=== PATIENT | male | born 1935 | race Caucasian/White ===

== ENCOUNTER → 2016-10-18 | Outpatient (CLI) | payer MEDICARE, BC ==
[2016-10-18 09:03] LABS: Appearance,Urine Clear (Clear); Bilirubin,Urine Negative (Negative); Glucose,Urine (UA) Negative (Negative); Ketones,Urine Negative (Negative); Leukocyte Esterase,Urine Negative (Negative); Nitrite,Urine Negative (Negative); PH, Urine 5.5 (5.0-8.0); Protein,Urine Trace (Negative); Specific Gravity,Urine 1.017 (1.001-1.035); UA Billing (MACRO vs. MICRO) CHEM; Urobilinogen,Urine <2.0 mg/dL (<2.0)
[2016-10-18 10:37] LABS: Basophils % (A) 0 %; CH 32.1; CHCM 32.9; Eosinophils # (A) 0.2 k/uL (0-0.7); Eosinophils % (A) 3 %; HCT 48.7 % (39.0-53.0); HDW 2.38; HGB 15.9 gm/dL (13.0-17.5); Luc # (Auto) 0.11; Luc % (Auto) 2; Lymphocytes # (A) 0.9 k/uL (1.0-4.8); Lymphocytes % (A) 14 %; MCH 32.1 pg (25.0-35.0); MCHC 32.8 g/dL (31.0-37.0); MCV 98.1 fL (80.0-100.0); Mean Platelet Volume 8.5; Monocytes # (A) 0.3 k/uL (0-1.0); Monocytes % (A) 5 %; Neutrophils # (A) 4.8 k/uL (1.3-7.7); Neutrophils % (A) 76 %; RBC 4.96 m/uL (4.30-5.90); RDW 13.3 % (11.5-15.5); WBC 6.3 k/uL (3.8-10.6); WBC (Perox) 6.41
[2016-10-18 11:10] LABS: ALT 39 U/L (21-72); AST 40 U/L (17-59); Alkaline Phosphatase 84 U/L (38-126); Anion Gap 9 mmol/L; Blood Urea Nitrogen 17 mg/dL (9-20); Calcium 9.3 mg/dL (8.4-10.2); Carbon Dioxide 28 mmol/L (22-30); Chloride 102 mmol/L (98-107); Cholesterol 129 mg/dL (<200); Glucose 127 mg/dL (74-99); HDL Cholesterol 48 mg/dL (40-60); Non-African American GFR(MDRD) >60 (>60 ml/min/1.73 sqM); Potassium 3.9 mmol/L (3.5-5.1); Sodium 139 mmol/L (137-145); Total Bilirubin 1.1 mg/dL (0.2-1.3); Total Protein 6.7 g/dL (6.3-8.2); Triglycerides 62 mg/dL (<150)
[2016-10-18 11:11] LABS: Hemoglobin A1C 5.8 % (4.2-6.1)
[2016-10-18 11:34] LABS: Prostate Specific Antigen 0.52 ng/mL (0.00-4.00)
== END | disposition home or self-care (01) ==
LOC: LABWHC1 08:01
PROVIDERS: ATTEND Family Medicine
DX: I48.2 Chronic atrial fibrillation (principal); I10 Essential (primary) hypertension; E78.2 Mixed hyperlipidemia; N40.0 Benign prostatic hyperplasia without lower urinary tract symptoms; Z79.01 Long term (current) use of anticoagulants
CPT/HCPCS: 36415; 80053; 80061; 81003; 83036; 84153; 84443; 85025; 85610

== ENCOUNTER → 2017-02-01 | Outpatient (CLI) | payer MEDICARE, BC ==
[2017-02-01 08:41] LABS: Basophils % (A) 1 %; CH 32.5; CHCM 34.6; Eosinophils # (A) 0.2 k/uL (0-0.7); Eosinophils % (A) 3 %; HCT 45.3 % (39.0-53.0); HDW 2.43; HGB 15.8 gm/dL (13.0-17.5); Luc # (Auto) 0.12; Luc % (Auto) 2; Lymphocytes # (A) 1.1 k/uL (1.0-4.8); Lymphocytes % (A) 16 %; MCH 33.1 pg (25.0-35.0); MCV 94.6 fL (80.0-100.0); Mean Platelet Volume 8.1; Monocytes # (A) 0.4 k/uL (0-1.0); Monocytes % (A) 5 %; Neutrophils # (A) 5.2 k/uL (1.3-7.7); Neutrophils % (A) 74 %; RBC 4.79 m/uL (4.30-5.90); RDW 13.5 % (11.5-15.5); WBC (Perox) 6.89
[2017-02-01 08:44] LABS: INR 1.5 (<1.1); Prothrombin Time 14.7 sec (9.0-12.0)
[2017-02-01 09:13] LABS: Hemoglobin A1C 5.8 % (4.2-6.1)
[2017-02-01 12:52] LABS: ALT 30 U/L (21-72); AST 29 U/L (17-59); Alkaline Phosphatase 83 U/L (38-126); Anion Gap 9 mmol/L; Blood Urea Nitrogen 17 mg/dL (9-20); Calcium 9.4 mg/dL (8.4-10.2); Carbon Dioxide 27 mmol/L (22-30); Chloride 104 mmol/L (98-107); Cholesterol 133 mg/dL (<200); Creatine Kinase 135 U/L (55-170); Glucose 107 mg/dL (74-99); HDL Cholesterol 45 mg/dL (40-60); Magnesium 1.9 mg/dL (1.6-2.3); Non-African American GFR(MDRD) >60 (>60 ml/min/1.73 sqM); Potassium 4.4 mmol/L (3.5-5.1); Sodium 140 mmol/L (137-145); Total Bilirubin 0.9 mg/dL (0.2-1.3); Total Protein 6.7 g/dL (6.3-8.2); Triglycerides 53 mg/dL (<150)
[2017-02-01 15:22] LABS: Vitamin B12 643 pg/mL
[2017-02-01 16:27] LABS: Urine Creatinine 212.1 mg/dL
== END | disposition home or self-care (01) ==
LOC: LABWHC1 08:15
PROVIDERS: ATTEND Family Medicine
DX: E78.2 Mixed hyperlipidemia (principal); E11.9 Type 2 diabetes mellitus without complications; I48.2 Chronic atrial fibrillation; J44.9 Chronic obstructive pulmonary disease, unspecified
CPT/HCPCS: 36415; 80053; 80061; 82043; 82550; 82570; 82607; 83036; 83735; 84439; 84443; 85025; 85610

== ENCOUNTER → 2017-04-10 | Outpatient (CLI) | payer MEDICARE, BC ==
--- NOTE | 2017-04-10 08:34 | FL ---
EXAMINATION TYPE: FL barium swallow DATE OF EXAM: 04/10/2017 CLINICAL HISTORY: Dysphagia TECHNIQUE: A double contrast esophagram is performed utilizing air and barium. A total of 2 minutes and 6 seconds of fluoroscopic time was utilized during procedure. COMPARISON: None FINDINGS: The esophagus shows normal motility and emptying into the stomach. Small hiatal hernia is n oted. Mild significant gastroesophageal reflux was seen during real time performance of this study to the level of the distal thoracic esophagus utilizing the Valsalva maneuver in the gravity independen t position. Impression upon the esophagus is seen posteriorly by anterior cervical and thoracic osteo phytes with no evidence of stricture. IMPRESSION: 1. No evidence of stricture or obstruction. 2. Small hiatal hernia and mild gastroesophageal reflux. 3. Mild posterior impression upon the esophagus by anterior cervical and thoracic osteophytes.
== END | disposition home or self-care (01) ==
LOC: RADFLMAIN 07:42
PROVIDERS: ATTEND Otolaryngology
DX: K44.9 Diaphragmatic hernia without obstruction or gangrene (principal); K21.9 Gastro-esophageal reflux disease without esophagitis; R13.10 Dysphagia, unspecified
CPT/HCPCS: 74220

== ENCOUNTER → 2017-04-19 | Outpatient (CLI) | payer MEDICARE, BC | END | disposition home or self-care (01) | LOC: PTMAIN 07:36 | PROVIDERS: ATTEND Otolaryngology | DX: R13.10 Dysphagia, unspecified (principal) | CPT/HCPCS: 31579 ==

== ENCOUNTER → 2017-06-06 | Outpatient (CLI) | payer MEDICARE, BC ==
[2017-06-06 08:28] LABS: Basophils % (A) 1 %; CH 32.1; CHCM 32.6; Eosinophils # (A) 0.3 k/uL (0-0.7); Eosinophils % (A) 4 %; HCT 49.4 % (39.0-53.0); HDW 2.47; HGB 15.8 gm/dL (13.0-17.5); Luc # (Auto) 0.15; Luc % (Auto) 2; Lymphocytes # (A) 1.2 k/uL (1.0-4.8); Lymphocytes % (A) 16 %; MCH 31.6 pg (25.0-35.0); MCHC 31.9 g/dL (31.0-37.0); Mean Platelet Volume 7.4; Monocytes # (A) 0.4 k/uL (0-1.0); Monocytes % (A) 6 %; Neutrophils # (A) 5.3 k/uL (1.3-7.7); Neutrophils % (A) 72 %; RBC 4.99 m/uL (4.30-5.90); RDW 12.9 % (11.5-15.5); WBC 7.4 k/uL (3.8-10.6); WBC (Perox) 7.55
[2017-06-06 08:46] LABS: ALT 34 U/L (21-72); AST 29 U/L (17-59); Alkaline Phosphatase 76 U/L (38-126); Anion Gap 9 mmol/L; Blood Urea Nitrogen 21 mg/dL (9-20); Calcium 9.1 mg/dL (8.4-10.2); Carbon Dioxide 28 mmol/L (22-30); Chloride 103 mmol/L (98-107); Cholesterol 134 mg/dL (<200); Creatine Kinase 137 U/L (55-170); Glucose 118 mg/dL (74-99); HDL Cholesterol 44 mg/dL (40-60); Magnesium 1.8 mg/dL (1.6-2.3); Non-African American GFR(MDRD) >60 (>60 ml/min/1.73 sqM); Potassium 4.6 mmol/L (3.5-5.1); Sodium 140 mmol/L (137-145); Total Bilirubin 0.6 mg/dL (0.2-1.3); Total Protein 6.8 g/dL (6.3-8.2)
== END | disposition home or self-care (01) ==
LOC: LABWHC1 08:00
PROVIDERS: ATTEND Family Medicine
DX: E03.9 Hypothyroidism, unspecified (principal); E11.9 Type 2 diabetes mellitus without complications; E78.2 Mixed hyperlipidemia
CPT/HCPCS: 36415; 80053; 80061; 82550; 82607; 83036; 83735; 84439; 84443; 85025

== ENCOUNTER → 2017-10-11 | Outpatient (CLI) | payer MEDICARE, BC ==
[2017-10-11 08:43] LABS: Basophils % (A) 1 %; Eosinophils # (A) 0.2 k/uL (0-0.7); Eosinophils % (A) 3 %; HCT 45.6 % (39.0-53.0); HGB 14.8 gm/dL (13.0-17.5); Lymphocytes # (A) 0.8 k/uL (1.0-4.8); Lymphocytes % (A) 12 %; MCH 30.5 pg (25.0-35.0); MCHC 32.4 g/dL (31.0-37.0); MCV 94.2 fL (80.0-100.0); Monocytes # (A) 0.4 k/uL (0-1.0); Monocytes % (A) 6 %; Neutrophils # (A) 4.9 k/uL (1.3-7.7); Neutrophils % (A) 77 %; Platelet Count 195 k/uL (150-450); RBC 4.84 m/uL (4.30-5.90); RDW 13.2 % (11.5-15.5); WBC 6.3 k/uL (3.8-10.6)
[2017-10-11 09:10] LABS: Appearance,Urine Clear (Clear); Bilirubin,Urine Negative (Negative); Blood,Urine Negative (Negative); Color,Urine Yellow; Glucose,Urine (UA) Negative (Negative); Ketones,Urine Negative (Negative); Leukocyte Esterase,Urine Negative (Negative); Nitrite,Urine Negative (Negative); Protein,Urine Negative (Negative); Specific Gravity,Urine 1.014 (1.001-1.035); Urobilinogen,Urine <2.0 mg/dL (<2.0)
[2017-10-11 09:46] LABS: ALT 28 U/L (21-72); AST 31 U/L (17-59); Albumin 3.9 g/dL (3.5-5.0); Alkaline Phosphatase 98 U/L (38-126); Anion Gap 7 mmol/L; Blood Urea Nitrogen 20 mg/dL (9-20); Calcium 9.7 mg/dL (8.4-10.2); Carbon Dioxide 32 mmol/L (22-30); Chloride 101 mmol/L (98-107); Cholesterol 119 mg/dL (<200); Glucose 114 mg/dL (74-99); HDL Cholesterol 42 mg/dL (40-60); LDL Cholesterol,Calculated 68 mg/dL (0-99); Potassium 4.9 mmol/L (3.5-5.1); Sodium 140 mmol/L (137-145); Total Bilirubin 0.7 mg/dL (0.2-1.3); Total Protein 6.5 g/dL (6.3-8.2); Triglycerides 46 mg/dL (<150)
[2017-10-11 09:59] LABS: T4, Free (Free Thyroxine) 1.25 ng/dL (0.78-2.19)
[2017-10-11 10:13] LABS: Prostate Specific Antigen 0.64 ng/mL (0.00-4.00)
[2017-10-11 18:15] LABS: Hemoglobin A1C 5.7 % (4.0-6.0)
== END | disposition home or self-care (01) ==
LOC: LABWHC1 07:50
PROVIDERS: ATTEND Family Medicine
DX: E78.2 Mixed hyperlipidemia (principal); N40.0 Benign prostatic hyperplasia without lower urinary tract symptoms; E11.9 Type 2 diabetes mellitus without complications; I10 Essential (primary) hypertension; E03.9 Hypothyroidism, unspecified
CPT/HCPCS: 36415; 80053; 80061; 81003; 82043; 82306; 82570; 82607; 83036; 84153; 84439; 84443; 85025

== ENCOUNTER 2018-01-19 09:20 | Inpatient (IN) | payer MEDICARE, BC ==
[2018-01-19] MEDS ORDERED: IOPAMIDOL-300 CONTRAST 30 ML VIAL (ORAL USE) PO PRN (12:49)
[2018-01-19] MEDS ORDERED: IPRATROPIUM-ALBUTEROL 3 ML NEB INHALATION PRN (12:52)
[2018-01-19] MEDS ORDERED: FLUTICASONE 50MCG/SPRAY NASAL 16GM EA NOSTRIL PRN (12:52)
[2018-01-19] MEDS ORDERED: HEPARIN SODIUM,PORCINE 10,000 UNIT/ML 1 ML VIAL IV ONE (12:57)
[2018-01-19] MEDS ORDERED: HEPARIN SODIUM,PORCINE 5,000 UNIT/ML 1 ML VIAL IV PRN (12:57)
[2018-01-19] MEDS ORDERED: WARFARIN SODIUM 3 MG PO SCH (13:00)
[2018-01-19] MEDS ORDERED: HEPARIN SOD,PORK IN 0.45% NACL 25,000 UNIT in 0.45% NACL 1 500ML.BAG IV SCH (13:00)
[2018-01-19 13:38] LABS: Basophils % (A) 0 %; Eosinophils # (A) 0.2 k/uL (0-0.7); Eosinophils % (A) 3 %; HCT 41.9 % (39.0-53.0); HGB 13.7 gm/dL (13.0-17.5); Lymphocytes # (A) 0.5 k/uL (1.0-4.8); Lymphocytes % (A) 7 %; MCH 30.6 pg (25.0-35.0); MCHC 32.7 g/dL (31.0-37.0); MCV 93.6 fL (80.0-100.0); Mean Platelet Volume 7.1; Monocytes # (A) 0.4 k/uL (0-1.0); Monocytes % (A) 6 %; Neutrophils # (A) 5.8 k/uL (1.3-7.7); Neutrophils % (A) 83 %; Platelet Count 237 k/uL (150-450); RBC 4.47 m/uL (4.30-5.90); WBC 6.9 k/uL (3.8-10.6)
[2018-01-19 13:47] LABS: INR 2.1 (<1.2); Partial Thromboplastin Time 30.1 sec (22.0-30.0); Prothrombin Time 19.4 sec (9.0-12.0)
[2018-01-19 13:57] LABS: ALT 39 U/L (21-72); AST 29 U/L (17-59); Albumin 3.3 g/dL (3.5-5.0); Alkaline Phosphatase 73 U/L (38-126); Anion Gap 8 mmol/L; Blood Urea Nitrogen 21 mg/dL (9-20); Calcium 8.7 mg/dL (8.4-10.2); Carbon Dioxide 29 mmol/L (22-30); Chloride 97 mmol/L (98-107); Glucose 98 mg/dL (74-99); Potassium 4.5 mmol/L (3.5-5.1); Sodium 134 mmol/L (137-145); Total Bilirubin 0.7 mg/dL (0.2-1.3); Total Protein 5.7 g/dL (6.3-8.2)
[2018-01-19 14:11] LABS: Creatine Kinase MB 1.4 ng/mL (0.0-2.4); Troponin I <0.012 ng/mL (0.000-0.034)
[2018-01-19] MEDS: SODIUM CHLORIDE 0.9% 1,000 ML IV SCH (14:30)
[2018-01-19 14:45] VITALS: BMI 23.3
[2018-01-19] MEDS: LEVOFLOXACIN 500MG-D5W PMX 500 MG in DEXTROSE/WATER 1 100ML.BAG IVPB SCH (14:45)
[2018-01-19] MEDS: IPRATROPIUM-ALBUTEROL 3 ML NEB INHALATION PRN (15:42)
--- NOTE | 2018-01-19 15:59 | P.HPIM ---
History of Present Illness H&P Date: 01/19/18 Chief Complaint: Lashonda lazcano with RVR, hypoxia, hypertension, hyperlipidemia, diabetes and hypoth 82-year-old occasion male one of Dr. 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 Patient has been complaining of increased dyspnea and worsening shortness of breath in the last week become much worse with feeling of palpitation on and off had affected his mobility and activity significantly. Patient was in to see Dr. Massey today with pulse rate running very fast over 100-160 beats per minute patient was sent to the hospital supposed to go to the emergency department but show up on the floor as a direct admit was placed on heart monitor was supposed to be started on Cardizem drip and heparin drip but his INR is therapeutic no need for anticoagulation through the IV if patient pulse rate remain fast and rapid patient will be started and continue on Cardizem drip any other antiarrhythmic medication. Also patient has been having worsening fluid retention and shortness of breath with the possibility of mild systolic congestive heart failure was started on Lasix 20 mg IV twice a day. Review of Systems CONSTITUTIONAL: Well-developed no acute respiratory distress. EYES: No icterus sclerae, no conjunctivitis. EARS, NOSE, MOUTH, THROAT, and FACE: No sore throat, lymphadenopathy, carotid bruits or deformity. RESPIRATORY: Positive shortness of breath cough with fluid retention. CARDIOVASCULAR: No CP, positive palpitation, PND and orthopnea. GASTROINTESTINAL: No Abd pain, Nausea or vomiting, no Diarrhea or constipation, No GI Bleed, no distention or masses. GENITOURINARY: Negative for Hematuria or UTI, no kidney stones. INTEGUMENT/BREAST: Negative for any muscular injury with mild osteoarthritis.. HEMATOLOGIC/LYMPHATIC: Negative for bleed or purpura. MUSCULOSKELTAL: Negative for Myalgia or arthralgia. NEURLOGICAL: No LOC, Sz or syncope, blurred vision dizziness or abnormality.. BEHAVIORAL/PSYCH: Negative. ENDOCRINE: Negative. Past Medical History Past Medical History: Atrial Fibrillation, Hyperlipidemia, Hypertension, Osteoarthritis (OA), Prostate Disorder Additional Past Medical History / Comment(s): Recent pneumonia, SVT, arthritis multiple joints, hypothyroid, BPH, hemorrhoids. History of Any Multi-Drug Resistant Organisms: None Reported Past Surgical History: Cholecystectomy, Tonsillectomy Additional Past Surgical History / Comment(s): Colonoscopies, bilateral cataracts removed twice with lens implants, R leg varicose vein stripping. Past Anesthesia/Blood Transfusion Reactions: No Reported Reaction Smoking Status: Former smoker - Past Family History Mother Family Medical History: Dementia Additional Family Medical History / Comment(s): Mother had a pacemaker. She lived to be 93 yrs old. Father Additional Family Medical History / Comment(s): Father had a "bad heart" and a aortic anuerysm. Medications and Allergies Home Medications Medication Instructions Recorded Confirmed Type Aspirin [Adult Low Dose Aspirin EC] 81 mg PO DAILY 12/30/15 01/19/18 History Levothyroxine Sodium [Synthroid] 75 mcg PO DAILY 12/30/15 01/19/18 History Tamsulosin [Flomax] 0.4 mg PO DAILY 12/30/15 01/19/18 History Fluticasone Nasal Burden [Flonase 1 - 2 spr EA NOSTRIL BID PRN 01/19/18 01/19/18 History Nasal Burden] Furosemide [Lasix] 20 mg PO BID 01/19/18 01/19/18 History Ipratropium [place] 0.06%Nasal 2 spray EA NOSTRIL TID 01/19/18 01/19/18 History [Atrovent Nasal 0.06%] Ipratropium/Albuterol Sulfate 1 - 2 puff INHALATION RT-QID PRN 01/19/18 History [Combivent Respimat Inhaler] MDD 6 PUFFS Metoprolol Succinate [Toprol XL] 50 mg PO DAILY 01/19/18 01/19/18 History Pantoprazole [Protonix] 40 mg PO DAILY 01/19/18 01/19/18 History Simvastatin [Zocor] 40 mg PO HS 01/19/18 01/19/18 History Warfarin Sodium [Coumadin] 3 mg PO DIRECTED 01/19/18 01/19/18 History metFORMIN HCL [metFORMIN HCL ER] 750 mg PO DAILY 01/19/18 01/19/18 History metroNIDAZOLE [Flagyl] 500 mg PO TID 01/19/18 01/19/18 History Allergies Allergy/AdvReac Type Severity Reaction Status Date / Time No Known Allergies Allergy Verified 01/19/18 11:41 Physical Exam Vitals: Vital Signs Pulse 01/19/18 15:43 92 Intake and Output 01/19/18 01/19/18 01/19/18 06:59 14:59 22:59 Other: # Voids 1 Weight 78.1 kg General Appearance: Alert, cooperative, no distress, appears stated age. Neck HEENT: Supple, no lymphadenopathy, no thyroid enlargement, no carotid bruits. Lungs: Clear to auscultation with decreased breaths in the bases positive fine rhonchi with no wheezes. Chest Wall: Decreased breath sound bilaterally specially in the left side with no deformity no tenderness in the costochondral area.. Heart: Irregular rate and rhythm, S1, S2 positive history positive irregularity normal, positive murmur, no rub or gallop. Back: Symmetric, no curvature, ROM normal, no CVA tenderness. Abdomen: Soft, non-tender, bowel sounds active all four quadrants, no masses, no organomegaly. Extremities: normal, atraumatic, no cyanosis, trace edema. Pulses: 2+ and symmetric. Skin: Skin color, texture, tugor normal, no rashes or lesions. Neurologic: Alert oriented x3 cranial nerves II through XII intact, no motor deficit, no abnormal balance or gait. Results CBC & Chem 7: 01/19/18 13:19 01/19/18 13:19 Labs: Abnormal Lab Results - Last 24 Hours (Table) 01/19/18 01/19/18 01/19/18 Range/Units 13:19 13:19 13:19 Lymphocytes # 0.5 L (1.0-4.8) k/uL PT 19.4 H (9.0-12.0) sec INR 2.1 H (<1.2) APTT 30.1 H (22.0-30.0) sec Sodium 134 L (137-145) mmol/L Chloride 97 L (98-107) mmol/L BUN 21 H (9-20) mg/dL Total Protein 5.7 L (6.3-8.2) g/dL Albumin 3.3 L (3.5-5.0) g/dL Thrombosis Risk Factor Assmnt - Choose All That Apply Any of the Below Risk Factors Present?: Yes Other Risk Factors: Yes Each Risk Factor Represents 3 Points: Age 75 years or older Other congenital or acquired thrombophilia - If yes, enter type in comment: No Thrombosis Risk Factor Assessment Total Risk Factor Score: 3 Thrombosis Risk Factor Assessment Level: Moderate Risk Assessment and Plan Plan: 1 A. fib with RVR: Patient was admitted to the hospital, will check anticoagulation start heparin if INR is below therapeutic, if pulse rate remain fast patient be started on Cardizem drip ~pulse rate to drop below 90 bpm then we will titrate metoprolol and possibly start patient on oral verapamil or Cardizem. Consult cardiology keep watching patient on monitor also might run an echocardiogram for better view and function of the left ventricle. 2 severe dyspnea and shortness of breath with basilar pneumonia been symptomatic , continue patient on DuoNeb also start on now antibiotics patient was started on Levaquin at this point and he was previously on Flagyl which will be continue. 3 CHF: Patient is on furosemide will switch to IV 20 mg twice a day continue metoprolol not clear why patient is not on our before diya. 4 diabetes: Patient will be continue on diet control. 5 hypothyroidism: Continue patient on levothyroxine 75 g daily. 6 hyperlipidemia: Remain on atorvastatin 20 mg a day. 7 BPH: Remain on Flomax 0.4 mg daily. 8 DVT prophylaxis: Anticoagulation has been therapeutic at this point resume medication. 9 GI prophylaxis: Remain on pantoprazole 40 mg daily. CODE STATUS: Full code. Admit patient to inpatient status for more than 2 nights.
--- NOTE | 2018-01-19 16:39 | CT ---
EXAMINATION TYPE: CT abdomen pelvis wo con DATE OF EXAM: 01/19/2018 HISTORY: HYPOXEMIA, A-FIB WITH RVR. Pain. CT DLP: 414.5 mGycm. Automated Exposure Control for Dose Reduction was Utilized. TECHNIQUE: CT scan of the abdomen and pelvis is performed with oral but without IV contrast. COMPARISON: NONE FINDINGS: Within the limitations of a non-contrast study, the following observations are made. LUNG BASES: Please refer to same day CTA chest report complete details on lung bases. LIVER/GB: Gallbladder is not visualized and presumed surgically absent. PANCREAS: No significant abnormality is seen. SPLEEN: Occasional calcifications throughout the spleen are present. ADRENALS: No significant abnormality is seen. KIDNEYS: No renal calculi or hydronephrosis is evident bilaterally. Scattered pelvic phleboliths are seen. BOWEL: Oral contrast does not reach colonic level making evaluation suboptimal. There is no suspiciou s small or large bowel dilatation. A few diverticula are seen in slightly redundant sigmoid colon. Th ere is no CT evidence for acute diverticulitis. GENITAL ORGANS: No gross abnormality seen. LYMPH NODES: No greater than 1cm abdominal or pelvic lymph nodes are appreciated. OSSEOUS STRUCTURES: Spine is straightened on sagittal images. There is moderate to severe multilevel anterior and lateral spurring. Slight dextro convex scoliosis is present. There is moderate multileve l disc space narrowing. There is facet arthropathy lower lumbar levels. OTHER: There is fairly moderate to severe calcified plaque of aorta extending into branch vessels. Sl ight ectatic course is present. No greater than 3 cm aneurysmal change is seen. IMPRESSION: No suspicious acute finding identified.
--- NOTE | 2018-01-19 16:48 | CT ---
EXAMINATION TYPE: CT chest angio for PE DATE OF EXAM: 01/19/2018 COMPARISON: NONE HISTORY: HYPOXEMIA, A-FIB WITH RVR CT DLP: 322.6 mGycm Automated exposure control for dose reduction was used. CONTRAST: CT Chest for pulmonary embolism performed with with IV Contrast, patient injected with 80 mL of Isovu e 370. FINDINGS: There are 3-D post processed images. There is pleural thickening and reticular infiltrate at the lung apices. There is some groundglass in terstitial infiltrates throughout both lungs. There is no pleural effusion. There is no pericardial e ffusion. Thoracic aorta is atheromatous. Ascending aorta measures 3.8 cm. There is no evidence of dissection. I see no filling defects in the pulmonary arteries. There are bilateral bronchial lymph nodes that me asure up to 1 cm. There are calcified granulomata in the right lower lobe. There is densely calcified subcarinal lymph node. There is a 1 cm subpleural nodule in the posterior right lower lobe. There is a 3 x 1 cm pleural-based infiltrate in the anterior left upper lobe. There are spondylotic changes t hroughout the thoracic spine. There is no compression fracture. IMPRESSION: No evidence of pulmonary embolism. Atherosclerotic vascular disease. Pulmonary interstitial fibrosis. Old granulomatous disease. Pulmonary nodular infiltrates probably related to scarring.
[2018-01-19] MEDS: metroNIDAZOLE-NS PMX 500 MG in SALINE 1 100ML.BAG IVPB SCH ×2 (17:03→23:53)
[2018-01-19] MEDS: IPRATROPIUM BROMIDE 0.06% NASAL SPRAY (15 ML) EA NOSTRIL SCH (17:04)
[2018-01-19 17:34] LABS: Glucose,Whole Blood 87 mg/dL (75-99)
[2018-01-19] MEDS: INSULIN ASPART 100 UNIT/ML 1 ML 10 ML VIAL SQ SCH ×2 (17:37→21:12)
[2018-01-19 19:33] LABS: Creatine Kinase MB 1.1 ng/mL (0.0-2.4); Troponin I <0.012 ng/mL (0.000-0.034)
[2018-01-19 20:31] LABS: Hemoglobin A1C 6.1 % (4.0-6.0)
[2018-01-19 21:13] LABS: Glucose,Whole Blood 100 mg/dL (75-99)
[2018-01-19] MEDS: FUROSEMIDE 10 MG/ML 2 ML VIAL IV SCH (21:43)
[2018-01-19] MEDS: ATORVASTATIN 20 MG TAB PO SCH (21:43)
[2018-01-20 01:49] LABS: Creatine Kinase MB 1.2 ng/mL (0.0-2.4); Troponin I <0.012 ng/mL (0.000-0.034)
[2018-01-20] MEDS: IPRATROPIUM BROMIDE 0.06% NASAL SPRAY (15 ML) EA NOSTRIL SCH ×4 (02:01→21:05)
[2018-01-20 06:04] LABS: Glucose,Whole Blood 102 mg/dL (75-99)
[2018-01-20 06:37] LABS: Basophils % (A) 0 %; Eosinophils # (A) 0.2 k/uL (0-0.7); Eosinophils % (A) 3 %; HCT 39.3 % (39.0-53.0); HGB 13.2 gm/dL (13.0-17.5); Lymphocytes # (A) 0.5 k/uL (1.0-4.8); Lymphocytes % (A) 6 %; MCH 31.6 pg (25.0-35.0); MCHC 33.6 g/dL (31.0-37.0); MCV 94.1 fL (80.0-100.0); Mean Platelet Volume 6.7; Monocytes # (A) 0.4 k/uL (0-1.0); Monocytes % (A) 5 %; Neutrophils % (A) 85 %; Platelet Count 253 k/uL (150-450); RBC 4.18 m/uL (4.30-5.90); RDW 15.7 % (11.5-15.5); WBC 8.3 k/uL (3.8-10.6)
[2018-01-20 06:39] LABS: INR 1.8 (<1.2); Prothrombin Time 16.5 sec (9.0-12.0)
[2018-01-20] MEDS: PANTOPRAZOLE 40 MG TABLET PO SCH (06:46)
[2018-01-20] MEDS: SODIUM CHLORIDE 0.9% 1,000 ML IV SCH (06:46)
[2018-01-20] MEDS: LEVOTHYROXINE 75 MCG TAB PO SCH (06:46)
[2018-01-20] MEDS: INSULIN ASPART 100 UNIT/ML 1 ML 10 ML VIAL SQ SCH ×4 (06:47→21:04)
[2018-01-20 06:49] LABS: Albumin 2.9 g/dL (3.5-5.0); Calcium 8.7 mg/dL (8.4-10.2); Potassium 4.3 mmol/L (3.5-5.1); Total Bilirubin 0.6 mg/dL (0.2-1.3); Total Protein 5.3 g/dL (6.3-8.2)
--- NOTE | 2018-01-20 07:40 | ECHOF ---
Referral Reason:LV function MEASUREMENTS -------- HEIGHT: 180.3 cm WEIGHT: 78.0 kg BP: IVSd: 1.1 cm (0.6 - 1.1) LVIDd: 3.9 cm (3.9 - 5.3) LVPWd: 1.3 cm (0.6 - 1.1) IVSs: 1.3 cm LVIDs: 3.4 cm LVPWs: 1.4 cm Ao Diam: 2.8 cm (2.0 - 3.7) AV Cusp: 1.7 cm (1.5 - 2.6) LA Diam: 3.3 cm (2.7 - 3.8) RAP: 5.00 mmHg RVSP: 23.84 mmHg FINDINGS -------- Atrial fibrillation. This was a technically difficult study with suboptimal views. The left ventricular size is normal. There is mild concentric left ventricular hypertrophy. There is mild to moderate global hypokinesis of LV . Overall left ventricular systolic function is mild-m oderately impaired with, an EF between 40 - 45 %. The right ventricle is normal in size and function. The left atrium is normal in size. The right atrium is normal in size. Lumason used The aortic valve is trileaflet, and appears structurally normal. No aortic stenosis or regurgitation. The mitral valve leaflets are mildly thickened. Mild mitral annular calcification present. Mild m itral regurgitation is present. Mild tricuspid regurgitation present. The right ventricular systolic pressure, as measured by Doppl er, is 23.84mmHg. Pulmonic valve appears structurally normal. The aortic root size is normal. The pericardium is normal. CONCLUSIONS -------- 1. Atrial fibrillation. 2. This was a technically difficult study with suboptimal views. 3. The left ventricular size is normal. 4. There is mild concentric left ventricular hypertrophy. 5. There is moderate global hypokinesis of LV . 6. The right ventricle is normal in size and function. 7. The left atrium is normal in size. 8. The right atrium is normal in size. 9. Lumason used 10. The aortic valve is trileaflet, and appears structurally normal. No aortic stenosis or regurgitat ion. 11. The mitral valve leaflets are mildly thickened. 12. Mild mitral annular calcification present. 13. Mild mitral regurgitation is present. 14. Mild tricuspid regurgitation present. 15. The right ventricular systolic pressure, as measured by Doppler, is 23.84mmHg. 16. Pulmonic valve appears structurally normal. 17. The aortic root size is normal. 18. The pericardium is normal. BIOTECH PRODUCTION SPECIALIST: Angela Munoz RDCS
[2018-01-20] MEDS ORDERED: METOPROLOL SUCCINATE (ER) 50 MG TAB.ER.24H PO SCH (09:00)
[2018-01-20] MEDS: METOPROLOL SUCCINATE (ER) 100 MG TAB.ER.24H PO SCH (09:14)
[2018-01-20] MEDS: ASPIRIN 81 MG PO SCH (09:14)
[2018-01-20] MEDS: FUROSEMIDE 10 MG/ML 2 ML VIAL IV SCH ×2 (09:14→19:49)
[2018-01-20] MEDS: TAMSULOSIN 0.4 MG CAP.ER.24H PO SCH (09:15)
[2018-01-20] MEDS: metroNIDAZOLE-NS PMX 500 MG in SALINE 1 100ML.BAG IVPB SCH ×2 (09:49→16:25)
[2018-01-20 10:14] LABS: Appearance,Urine Clear (Clear); Bilirubin,Urine Negative (Negative); Blood,Urine Negative (Negative); Color,Urine Yellow; Glucose,Urine (UA) Negative (Negative); Ketones,Urine Negative (Negative); Leukocyte Esterase,Urine Negative (Negative); Nitrite,Urine Negative (Negative); Protein,Urine Negative (Negative); Specific Gravity,Urine 1.015 (1.001-1.035); Urobilinogen,Urine <2.0 mg/dL (<2.0)
[2018-01-20] MEDS: IPRATROPIUM-ALBUTEROL 3 ML NEB INHALATION PRN (11:41)
[2018-01-20 11:54] LABS: Glucose,Whole Blood 83 mg/dL (75-99)
--- NOTE | 2018-01-20 12:20 | P.PN ---
Subjective 82-year-old occasion male one of Dr. 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 jaleesa with metoprolol succinate 50 mg a day still on anticoagulation with warfarin 3 mg daily. Patient has been complaining of increased dyspnea and worsening shortness of breath in the last week become much worse with feeling of palpitation on and off had affected his mobility and activity significantly. Patient was in to see Dr. Massey today with pulse rate running very fast over 100-160 beats per minute patient was sent to the hospital supposed to go to the emergency department but show up on the floor as a direct admit was placed on heart monitor was supposed to be started on Cardizem drip and heparin drip but his INR is therapeutic no need for anticoagulation through the IV if patient pulse rate remain fast and rapid patient will be started and continue on Cardizem drip any other antiarrhythmic medication. Also patient has been having worsening fluid retention and shortness of breath with the possibility of mild systolic congestive heart failure was started on Lasix 20 mg IV twice a day. 01/20: Patient was evaluated today, he reports he is feeling well, denies any shortness of breath, cough, chest pain, or palpitations. Patient rates in A. fib, with heart rate of 114, cardiology on consult, metoprolol was increased to 100 mg daily. He remains on Levaquin for possible pneumonia. INR was 1.8, Coumadin adjusted, will keep patient one more day to monitor INR and heart rate , possible discharge in the morning. Objective - Vital Signs Vital signs: Vital Signs Temp 98.2 F 01/20/18 09:09 Pulse 105 H 01/20/18 11:49 Resp 16 01/20/18 09:09 BP 121/68 01/20/18 09:09 Pulse Ox 92 L 01/20/18 09:09 Intake & Output 01/19/18 01/20/18 01/20/18 18:59 06:59 18:59 Intake Total 476 750 240 Output Total 500 1000 Balance -24 -250 240 Weight 78.1 kg 77.9 kg Intake: Intake, IV Titration 450 Amount Sodium Chloride 0.9% 1, 450 000 ml @ 75 mls/hr IV . [id number] [facility] Rx#:[id number] Oral 476 300 240 Output: Urine 500 1000 Other: Voiding Method Toilet Toilet Toilet # Voids 1 1 - Exam General Appearance: Alert, cooperative, no distress, appears stated age. Neck HEENT: Supple, no lymphadenopathy, no thyroid enlargement, no carotid bruits. Lungs: Clear to auscultation with decreased breaths in the bases positive fine rhonchi with no wheezes. Chest Wall: Decreased breath sound bilaterally specially in the left side with no deformity no tenderness in the costochondral area.. Heart: Irregular rate and rhythm, S1, S2 positive history positive irregularity normal, positive murmur, no rub or gallop. Back: Symmetric, no curvature, ROM normal, no CVA tenderness. Abdomen: Soft, non-tender, bowel sounds active all four quadrants, no masses, no organomegaly. Extremities: normal, atraumatic, no cyanosis, trace edema. Pulses: 2+ and symmetric. Skin: Skin color, texture, tugor normal, no rashes or lesions. Neurologic: Alert oriented x3 cranial nerves II through XII intact, no motor deficit, no abnormal balance or gait. - Labs CBC & Chem 7: 01/20/18 05:46 01/20/18 05:46 Labs: Abnormal Lab Results - Last 24 Hours (Table) 01/19/18 01/19/18 01/19/18 Range/Units 13:19 13:19 13:19 RBC (4.30-5.90) m/uL RDW (11.5-15.5) % Lymphocytes # 0.5 L (1.0-4.8) k/uL PT 19.4 H (9.0-12.0) sec INR 2.1 H (<1.2) APTT 30.1 H (22.0-30.0) sec Sodium 134 L (137-145) mmol/L Chloride 97 L (98-107) mmol/L BUN 21 H (9-20) mg/dL POC Glucose (mg/dL) (75-99) mg/dL Hemoglobin A1c (4.0-6.0) % Total Protein 5.7 L (6.3-8.2) g/dL Albumin 3.3 L (3.5-5.0) g/dL 01/19/18 01/19/18 01/20/18 Range/Units 13:19 21:11 05:46 RBC 4.18 L (4.30-5.90) m/uL RDW 15.7 H (11.5-15.5) % Lymphocytes # 0.5 L (1.0-4.8) k/uL PT (9.0-12.0) sec INR (<1.2) APTT (22.0-30.0) sec Sodium (137-145) mmol/L Chloride (98-107) mmol/L BUN (9-20) mg/dL POC Glucose (mg/dL) 100 H (75-99) mg/dL Hemoglobin A1c 6.1 H (4.0-6.0) % Total Protein (6.3-8.2) g/dL Albumin (3.5-5.0) g/dL 01/20/18 01/20/18 01/20/18 Range/Units 05:46 05:46 06:03 RBC (4.30-5.90) m/uL RDW (11.5-15.5) % Lymphocytes # (1.0-4.8) k/uL PT 16.5 H (9.0-12.0) sec INR 1.8 H (<1.2) APTT (22.0-30.0) sec Sodium 135 L (137-145) mmol/L Chloride (98-107) mmol/L BUN (9-20) mg/dL POC Glucose (mg/dL) 102 H (75-99) mg/dL Hemoglobin A1c (4.0-6.0) % Total Protein 5.3 L (6.3-8.2) g/dL Albumin 2.9 L (3.5-5.0) g/dL Assessment and Plan Plan: 1 A. fib with RVR: Patient was admitted to the hospital, will check anticoagulation, metoprolol crease 100 mg daily. Consult cardiology keep watching patient on monitor also might run an echocardiogram for better view and function of the left ventricle. 2 severe dyspnea and shortness of breath with basilar pneumonia been symptomatic , continue patient on DuoNeb also start on now antibiotics patient was started on Levaquin at this point and he was previously on Flagyl which will be continue. 3 CHF: Patient is on furosemide will switch to IV 20 mg twice a day continue metoprolol not clear why patient is not on our before diya. 4 diabetes: Patient will be continue on diet control. 5 hypothyroidism: Continue patient on levothyroxine 75 g daily. 6 hyperlipidemia: Remain on atorvastatin 20 mg a day. 7 BPH: Remain on Flomax 0.4 mg daily. 8 DVT prophylaxis: Anticoagulation has been therapeutic at this point resume medication. 9 GI prophylaxis: Remain on pantoprazole 40 mg daily. CODE STATUS: Full code. Admit patient to inpatient status for more than 2 nights. The above impression and plan of care have been discussed and directed by signing physician. Lucero Hernandes nurse practitioner acting as scribe for signing physician.
--- NOTE | 2018-01-20 12:51 | CONS ---
CONSULTATION Mr. Sky is an 82-year-old male patient who follows with Dr. Caballero at [facility]. He was admitted for atrial fibrillation with RVR. His main complaint is that since October he has been increasingly short of breath, tired and fatigued and does not feel well. He denied any palpitations or chest pain. Apparently he was treated for a lung infection. He states that has never improved and he was tried on multiple antibiotics. His past medical history includes permanent atrial fibrillation, hypertension, right bundle branch block pattern on 12-lead ECG in the past. He is on anticoagulation but since October the INRs have been fluctuating. He denies any chest discomfort. REVIEW OF SYSTEMS: No fever, chills, or rigors. No cough or expectoration. No nausea, vomiting, or diarrhea. No hematuria or dysuria. No strokes or seizures. No skin lesions. No musculoskeletal complaints. His main complaint is tiredness, fatigue, shortness of breath and running out of gas. PAST MEDICAL HISTORY: Includes recent pneumonia, arthritis, hemorrhoids, hypothyroidism, cholecystectomy, tonsillectomy and colonoscopies. FAMILY HISTORY: Noncontributory. His mother did have pacemaker but she lived to be 93 years old. MEDICATIONS: Medications at home include was aspirin, Synthroid, Flomax, nasal sprays, Lasix 20 mg twice daily, inhalers, metoprolol succinate 50 mg daily, simvastatin 40 mg daily, warfarin 3 mg daily, and metolazone. ALLERGIES: No known drug allergies. PHYSICAL EXAMINATION: His pulse rate is elevated. His resting heart rate is between 110 and 120 beats per minute. He is afebrile, 98.2 degrees Fahrenheit, blood pressure is 121/68 mmHg. Breath sounds are reduced bilaterally with no rhonchi, no crackles. Some expiratory wheezing is audible, scattered. Heart sounds are irregular and tachycardiac. Abdomen was soft, nontender. Extremities are warm, no edema. I do not see any JVD. There is very mild hepatic jugular reflux. LABS: His labs are reviewed. His 2D echo and Doppler was reviewed and shows mild LVH with moderate global hypokinesis, ejection fraction 40-45%. No significant valvular abnormalities. PA pressures are normal. He underwent a CT of the chest and abdomen. There was no evidence of pulmonary embolism. Pulmonary interstitial fibrosis and old granulomatous disease noted. Prior scarring noted. CT of the abdomen did not show any specific abnormalities. His labs are reviewed. White count is normal 8.3, hemoglobin 13.2. INR is subtherapeutic 1.8. Troponin was normal. Electrolytes are normal. Renal function was normal. IMPRESSION: 1. Symptomatic atrial fibrillation with rapid ventricular response. 2. Right bundle branch block. 3. Cardiomyopathy. 4. Permanent atrial fibrillation. He has known atrial fibrillation and was on rate controlled with 50 mg of metoprolol under the care of Dr. Dexter Caballero. 5. Hypertension. 6. Subtherapeutic INR. SUGGEST: 1. Increase Toprol to 100 mg p.o. daily. 2. Later spironolactone and angiotensin receptor libby should be added for cardiomyopathy. He would like to follow up with his own security services manager and he already has an appointment. Will check his TSH and then further management per his security services manager. At this time, I would aim for rate controlled with metoprolol and also increase dose of Coumadin to 4 mg p.o. daily for stroke risk reduction. I had a very detailed discussion with the patient regarding management of atrial fibrillation and he is agreeable to stay for the next 24 hours if his heart rates are not well controlled. MMODL / IJN: [id number] /
[2018-01-20] MEDS: LEVOFLOXACIN 500MG-D5W PMX 500 MG in DEXTROSE/WATER 1 100ML.BAG IVPB SCH (13:22)
[2018-01-20 17:03] LABS: Glucose,Whole Blood 130 mg/dL (75-99)
[2018-01-20] MEDS ORDERED: WARFARIN 3 MG TAB PO SCH (18:00)
[2018-01-20] MEDS ORDERED: WARFARIN 2 MG TAB PO SCH (18:00)
[2018-01-20] MEDS: ATORVASTATIN 20 MG TAB PO SCH (19:47)
[2018-01-20 20:50] LABS: Glucose,Whole Blood 94 mg/dL (75-99)
[2018-01-21] MEDS: metroNIDAZOLE-NS PMX 500 MG in SALINE 1 100ML.BAG IVPB SCH ×2 (02:17→07:47)
[2018-01-21 05:30] VITALS: RESP 16
[2018-01-21 06:11] LABS: Glucose,Whole Blood 111 mg/dL (75-99)
[2018-01-21] MEDS: INSULIN ASPART 100 UNIT/ML 1 ML 10 ML VIAL SQ SCH ×2 (06:45→12:47)
[2018-01-21] MEDS: PANTOPRAZOLE 40 MG TABLET PO SCH (06:45)
[2018-01-21] MEDS: LEVOTHYROXINE 75 MCG TAB PO SCH (06:46)
[2018-01-21 07:00] LABS: Basophils % (A) 0 %; Eosinophils # (A) 0.3 k/uL (0-0.7); Eosinophils % (A) 3 %; HCT 40.1 % (39.0-53.0); HGB 13.5 gm/dL (13.0-17.5); Lymphocytes # (A) 0.5 k/uL (1.0-4.8); Lymphocytes % (A) 6 %; MCH 31.1 pg (25.0-35.0); MCHC 33.6 g/dL (31.0-37.0); MCV 92.5 fL (80.0-100.0); Mean Platelet Volume 7.1; Monocytes # (A) 0.5 k/uL (0-1.0); Monocytes % (A) 6 %; Neutrophils # (A) 6.6 k/uL (1.3-7.7); Neutrophils % (A) 83 %; Platelet Count 247 k/uL (150-450); RBC 4.33 m/uL (4.30-5.90); RDW 14.9 % (11.5-15.5); WBC 7.9 k/uL (3.8-10.6)
[2018-01-21] MEDS: FUROSEMIDE 10 MG/ML 2 ML VIAL IV SCH (07:47)
[2018-01-21] MEDS: METOPROLOL SUCCINATE (ER) 100 MG TAB.ER.24H PO SCH (07:47)
[2018-01-21] MEDS: ASPIRIN 81 MG PO SCH (07:48)
[2018-01-21] MEDS: TAMSULOSIN 0.4 MG CAP.ER.24H PO SCH (07:48)
[2018-01-21] MEDS: IPRATROPIUM BROMIDE 0.06% NASAL SPRAY (15 ML) EA NOSTRIL SCH (07:48)
[2018-01-21 07:55] VITALS: BP 129/64; TEMP 97.6
[2018-01-21 08:29] LABS: INR 1.5 (<1.2); Prothrombin Time 13.5 sec (9.0-12.0)
[2018-01-21] MEDS ORDERED: SPIRONOLACTONE 25 MG TAB PO SCH (09:00)
[2018-01-21] MEDS ORDERED: METOPROLOL SUCCINATE (ER) 50 MG TAB.ER.24H PO ONE (09:00)
[2018-01-21] MEDS ORDERED: LOSARTAN 25 MG TAB PO SCH (09:00)
[2018-01-21] MEDS ORDERED: ENOXAPARIN 80 MG/0.8 ML SYRINGE SQ SCH (09:15)
--- NOTE | 2018-01-21 11:19 | PN ---
PROGRESS NOTE Jose Antonio Sky came in with increasing shortness of breath, tiredness, fatigue and was found to be in atrial fibrillation with RVR. He has an underlying right bundle branch block. He also had a cardiomyopathy, follows with Dr. Constantin Caballero at [facility]. His INR was subtherapeutic and I increased the dose of Coumadin to 4 mg p.o. daily. Today, he feels a lot better. His heart rates, although still elevated, are a lot better than before and now are between 90-110 beats per minute. He denies any chest discomfort, dizziness, lightheadedness. He is afebrile, 97.6 degrees Fahrenheit, pulse rate about 100 beats per minute. Respirations are nonlabored. Blood pressure 129/64 mmHg. Head and neck examination is normal. Heart sounds are irregular but normal. No murmurs or gallops or rubs. Abdomen is soft, nontender. Extremities are warm. No edema. He is ambulating in the hallway. He looks quite comfortable. SUGGEST: 1. Increase Toprol-XL to 150 mg p.o. daily in the morning. 2. Add lisinopril 25 mg in the evening. 3. Stop IV Lasix and switch to p.o. Aldactone 25 mg in the morning. His TSH was normal. 4. I will add Coumadin 4 mg p.o. daily and Lovenox bridge. 5. He may go home today. 6. Follow up with Dr. Caballero as scheduled. He is scheduled within the next 7-10 days. 7. PT/INR should be drawn and at that time as well as a BMP. 8. 9. He deserves a workup for cardiomyopathy and if his coronary arteries are normal, then atrial fibrillation should be considered as a mechanism for cardiomyopathy if no clear-cut cause is evident. 10.He denies history of smoking. Denies alcohol use. 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 MMODL / IJN: [id number] /
[2018-01-21 12:20] LABS: Glucose,Whole Blood 107 mg/dL (75-99)
--- NOTE | 2018-01-21 12:27 | P.DS ---
Providers Date of admission: 01/19/18 10:10 Attending physician: Krysten Massey Consults: 01/19/18 12:29 Consult Physician Stat Consulting Provider: Abraham De Leon Consult Reason/Comments: AFIb RVR Do you want consulting provider notified?: Yes Placement Type Exists?: Yes Primary care physician: Krysten Shilpa [facility] Course: 82-year-old occasion male one of Dr. Massey patient with past medical history of atherosclerotic heart disease, hypertension, hyperlipidemia, prostate disease along with A. jaleesa who has been seen network security administrator down in [facility] for the last few years and been treated for A. fib with metoprolol succinate 50 mg a day still on anticoagulation with warfarin 3 mg daily. Patient has been complaining of increased dyspnea and worsening shortness of breath in the last week become much worse with feeling of palpitation on and off had affected his mobility and activity significantly. Patient was in to see Dr. Massey today with pulse rate running very fast over 100-160 beats per minute patient was sent to the hospital supposed to go to the emergency department but show up on the floor as a direct admit was placed on heart monitor was supposed to be started on Cardizem drip and heparin drip but his INR is therapeutic no need for anticoagulation through the IV if patient pulse rate remain fast and rapid patient will be started and continue on Cardizem drip any other antiarrhythmic medication. Also patient has been having worsening fluid retention and shortness of breath with the possibility of mild systolic congestive heart failure was started on Lasix 20 mg IV twice a day. 01/20: Patient was evaluated today, he reports he is feeling well, denies any shortness of breath, cough, chest pain, or palpitations. Patient rates in A. fib, with heart rate of 114, cardiology on consult, metoprolol was increased to 100 mg daily. He remains on Levaquin for possible pneumonia. INR was 1.8, Coumadin adjusted, will keep patient one more day to monitor INR and heart rate , possible discharge in the morning. 01/21: Patient denies any dizziness, palpitations, chest pain, or shortness of breath today. Heart rate is controlled, highest heart rate was 103 today. Coumadin was adjusted, INR 1.5, he will continue on 4mg daily, Lovenox added for 3 days until INR is therapeutic. Toprol was increased to 150 daily, lisinopril 25 mg added Aldactone 25 mg also added. He plans to follow up with his own network security administrator and already has an appointment. He'll stop by the office Monday to have CMP and INR checked. Discharge diagnoses 1 A. fib with RVR 2 severe dyspnea and shortness of breath related to his CHF and A.fib, pneumonia has been ruled out 3 CHF 4 diabetes 5 hypothyroidism 6 hyperlipidemia 7 BPH The above impression and plan of care have been discussed and directed by signing physician. Lucero Hernandes nurse practitioner acting as scribe for signing physician. Patient Condition at Discharge: Good Plan - Discharge Summary Discharge Rx Participant: No New Discharge Prescriptions: New Enoxaparin [Lovenox] 80 mg SQ Q12HR #6 syringe Losartan [Cozaar] 25 mg PO DAILY #30 tab Metoprolol Succinate (ER) [Toprol XL] 150 mg PO DAILY #90 tab.er.24h Spironolactone [Aldactone] 25 mg PO DAILY #30 tab Warfarin [Coumadin] 4 mg PO DAILY@1800 #60 tab Continue Tamsulosin [Flomax] 0.4 mg PO DAILY Levothyroxine Sodium [Synthroid] 75 mcg PO DAILY Aspirin [Adult Low Dose Aspirin EC] 81 mg PO DAILY Ipratropium/Albuterol Sulfate [Combivent Respimat Inhaler] 1 - 2 puff INHALATION RT-QID PRN MDD 6 PUFFS PRN Reason: Shortness Of Breath Ipratropium [place] 0.06%Nasal [Atrovent Nasal 0.06%] 2 spray EA NOSTRIL TID Furosemide [Lasix] 20 mg PO BID metroNIDAZOLE [Flagyl] 500 mg PO TID Pantoprazole [Protonix] 40 mg PO DAILY Simvastatin [Zocor] 40 mg PO HS Fluticasone Nasal [place] [Flonase Nasal [place]] 1 - 2 spr EA NOSTRIL BID PRN PRN Reason: Allergy Symptoms metFORMIN HCL [metFORMIN HCL ER] 750 mg PO DAILY Discontinued Metoprolol Succinate [Toprol XL] 50 mg PO DAILY Warfarin Sodium [Coumadin] 3 mg PO DIRECTED Discharge Medication List Aspirin [Adult Low Dose Aspirin EC] 81 mg PO DAILY 12/30/15 [History] Levothyroxine Sodium [Synthroid] 75 mcg PO DAILY 12/30/15 [History] Tamsulosin [Flomax] 0.4 mg PO DAILY 12/30/15 [History] Fluticasone Nasal [place] [Flonase Nasal [place]] 1 - 2 spr EA NOSTRIL BID PRN 01/19 [History] Furosemide [Lasix] 20 mg PO BID 01/19/18 [History] Ipratropium [place] 0.06%Nasal [Atrovent Nasal 0.06%] 2 spray EA NOSTRIL TID [History] Ipratropium/Albuterol Sulfate [Combivent Respimat Inhaler] 1 - 2 puff INHALATION RT-QID PRN MDD 6 PUFFS 01/19/18 [History] Pantoprazole [Protonix] 40 mg PO DAILY 01/19/18 [History] Simvastatin [Zocor] 40 mg PO HS 01/19/18 [History] metFORMIN HCL [metFORMIN HCL ER] 750 mg PO DAILY 01/19/18 [History] metroNIDAZOLE [Flagyl] 500 mg PO TID 01/19/18 [History] Enoxaparin [Lovenox] 80 mg SQ Q12HR #6 syringe 01/21/18 [Rx] Losartan [Cozaar] 25 mg PO DAILY #30 tab 01/21/18 [Rx] Metoprolol Succinate (ER) [Toprol XL] 150 mg PO DAILY #90 tab.er.24h 01/21/18 [ Rx] Spironolactone [Aldactone] 25 mg PO DAILY #30 tab 01/21/18 [Rx] Warfarin [Coumadin] 4 mg PO DAILY@1800 #60 tab 01/21/18 [Rx] Follow up Appointment(s)/Referral(s): Abraham De Leon MD [STAFF PHYSICIAN] - As Needed (Patient of Dr. Dexter Caballero at [facility]. Patient has an appointment with him and would like to see his own network security administrator) aLlit Saldana MD [Medical Doctor] - 1 Week Patient Instructions/Handouts: A-fib (Atrial Fibrillation) (DC), Hypoxia (GEN) Discharge Disposition: HOME SELF-CARE
[2018-01-21 12:30] VITALS: PULSE 76
[2018-01-22] MEDS ORDERED: METOPROLOL SUCCINATE (ER) 50 MG TAB.ER.24H PO SCH (09:00)
== END 2018-01-21 12:57 | disposition home or self-care (01) | DRG 308 ==
LOC: 6SEL 10:10
PROVIDERS: ADMIT Family Medicine; ATTEND Family Medicine
DX: I48.2 Chronic atrial fibrillation (principal); J18.9 Pneumonia, unspecified organism; E78.5 Hyperlipidemia, unspecified; I10 Essential (primary) hypertension; E11.9 Type 2 diabetes mellitus without complications; E03.9 Hypothyroidism, unspecified; I11.0 Hypertensive heart disease with heart failure; I50.9 Heart failure, unspecified; I25.10 Atherosclerotic heart disease of native coronary artery without angina pectoris; I42.9 Cardiomyopathy, unspecified; I45.10 Unspecified right bundle-branch block; N40.0 Benign prostatic hyperplasia without lower urinary tract symptoms; R79.1 Abnormal coagulation profile; Z96.1 Presence of intraocular lens; Z79.01 Long term (current) use of anticoagulants; Z79.82 Long term (current) use of aspirin; Z87.891 Personal history of nicotine dependence; Z87.01 Personal history of pneumonia (recurrent); Z79.899 Other long term (current) drug therapy; Z79.890 Hormone replacement therapy
CPT/HCPCS: 71275; 74176; 80053; 81003; 82553; 83036; 83880; 84443; 84484; 85025; 85610; 85730; 87086; 93306; 94640

== ENCOUNTER → 2018-10-17 | Outpatient (CLI) | payer MEDICARE, BC ==
[2018-10-17 08:45] LABS: Basophils % (A) 0 %; Eosinophils # (A) 0.2 k/uL (0-0.7); Eosinophils % (A) 4 %; HCT 47.7 % (39.0-53.0); HGB 15.1 gm/dL (13.0-17.5); Lymphocytes # (A) 0.8 k/uL (1.0-4.8); Lymphocytes % (A) 12 %; MCH 30.9 pg (25.0-35.0); MCHC 31.7 g/dL (31.0-37.0); MCV 97.5 fL (80.0-100.0); Mean Platelet Volume 7.1; Monocytes # (A) 0.4 k/uL (0-1.0); Monocytes % (A) 5 %; Neutrophils # (A) 5.1 k/uL (1.3-7.7); Neutrophils % (A) 77 %; Platelet Count 209 k/uL (150-450); RDW 13.4 % (11.5-15.5); WBC 6.7 k/uL (3.8-10.6)
[2018-10-17 08:47] LABS: INR 3.2 (<1.2); Prothrombin Time 30.5 sec (9.0-12.0)
[2018-10-17 16:23] LABS: ALT 25 U/L (10-49); AST 39 U/L (14-35); Albumin/Globulin Ratio 2.25 (1.60-3.17); Alkaline Phosphatase 94 U/L (41-126); Calcium 9.4 mg/dL (8.7-10.3); Carbon Dioxide 26.9 mmol/L (21.6-31.8); Chloride 105 mmol/L (96-109); Cholesterol 128 mg/dL (0-200); Creatine Kinase 229 U/L (35-257); Glucose 112 mg/dL (70-110); Potassium 4.5 mmol/L (3.5-5.5); Sodium 139 mmol/L (135-145); Total Bilirubin 0.9 mg/dL (0.2-1.2); Total Protein 6.5 g/dL (6.2-8.2); Triglycerides <50.0 mg/dL (0.0-149.0); Uric Acid 5.2 mg/dL (3.7-8.7); VLDL Calculation 9.98 mg/dL (5.00-40.00)
[2018-10-17 18:28] LABS: Hemoglobin A1C 5.9 % (4.0-6.0)
== END | disposition home or self-care (01) ==
LOC: LABWHC1 07:58
PROVIDERS: ATTEND Family Medicine
DX: E55.9 Vitamin D deficiency, unspecified (principal); E03.9 Hypothyroidism, unspecified; E11.9 Type 2 diabetes mellitus without complications; I48.2 Chronic atrial fibrillation; I10 Essential (primary) hypertension; Z12.5 Encounter for screening for malignant neoplasm of prostate
CPT/HCPCS: 36415; 80053; 80061; 82306; 82550; 83036; 83880; 84153; 84439; 84443; 84550; 85025; 85610

== ENCOUNTER → 2019-02-20 | Outpatient (CLI) | payer MEDICARE, BC ==
[2019-02-20 08:42] LABS: Basophils % (A) 0 %; Eosinophils # (A) 0.3 k/uL (0-0.7); Eosinophils % (A) 5 %; HCT 42.5 % (39.0-53.0); HGB 13.8 gm/dL (13.0-17.5); Lymphocytes # (A) 0.9 k/uL (1.0-4.8); Lymphocytes % (A) 15 %; MCH 31.9 pg (25.0-35.0); MCHC 32.6 g/dL (31.0-37.0); MCV 97.9 fL (80.0-100.0); Mean Platelet Volume 8.2; Monocytes # (A) 0.3 k/uL (0-1.0); Monocytes % (A) 5 %; Neutrophils # (A) 4.6 k/uL (1.3-7.7); Neutrophils % (A) 72 %; Platelet Count 163 k/uL (150-450); RBC 4.34 m/uL (4.30-5.90); WBC 6.3 k/uL (3.8-10.6)
[2019-02-20 08:46] LABS: INR 3.1 (<1.2); Prothrombin Time 30.1 sec (9.0-12.0)
[2019-02-20 16:22] LABS: ALT 21 U/L (10-49); AST 31 U/L (14-35); African American GFR (CKD) 80.9 (60.0-200.0); Albumin/Globulin Ratio 2.75 (1.60-3.17); Alkaline Phosphatase 95 U/L (41-126); Calcium 9.4 mg/dL (8.7-10.3); Carbon Dioxide 28.1 mmol/L (21.6-31.8); Chloride 105 mmol/L (96-109); Cholesterol 115 mg/dL (0-200); Creatine Kinase 228 U/L (35-257); Globulin 1.6 g/dL (1.6-3.3); Glucose 124 mg/dL (70-110); Magnesium 1.7 mg/dL (1.5-2.4); Potassium 4.6 mmol/L (3.5-5.5); Sodium 140 mmol/L (135-145); Total Bilirubin 0.5 mg/dL (0.2-1.2); Triglycerides <50.0 mg/dL (0.0-149.0); VLDL Calculation 9.98 mg/dL (5.00-40.00)
[2019-02-20 18:50] LABS: Hemoglobin A1C 5.6 % (4.0-6.0)
== END | disposition home or self-care (01) ==
LOC: LABWHC1 07:57
PROVIDERS: ATTEND Family Medicine
DX: Z00.00 Encounter for general adult medical examination without abnormal findings (principal); E78.2 Mixed hyperlipidemia; E11.9 Type 2 diabetes mellitus without complications; E03.9 Hypothyroidism, unspecified; E88.89 Other specified metabolic disorders; R41.9 Unspecified symptoms and signs involving cognitive functions and awareness
CPT/HCPCS: 36415; 80053; 80061; 82043; 82550; 82570; 82607; 83036; 83735; 84439; 84443; 85025; 85610

== ENCOUNTER → 2019-04-23 | Outpatient (CLI) | payer MEDICARE, BC ==
--- NOTE | 2019-04-23 13:19 | XR ---
EXAMINATION TYPE: XR chest 2V DATE OF EXAM: 04/23/2019 COMPARISON: CT chest dated 01/19/2018 HISTORY: Cough TECHNIQUE: Frontal and lateral views of the chest are obtained. FINDINGS: The previously seen peripheral basilar predominant subpleural reticulation represent fibro tic change in the prior CT of 01/17/2018 is less well visualized on x-ray. Calcified granulomas are be nign within the right midlung. The seen nodular density inferior to this within the right lower lobe along the pleural surface on the prior exam measured approximately 1 cm at the time this also poorly visualized on x-ray and should be evaluated with follow-up CT. Pulmonary hyperinflation and flattenin g of the diaphragms are indicative of underlying COPD. Extensive atherosclerosis of the thoracic aort a is noted. Mild diffuse osseous demineralization and mild degenerative changes of spine. Cardiomedia stinal silhouette is upper limits of normal. Benign granulomatous changes are also seen on the hilum. IMPRESSION: 1. Follow-up CT thorax is recommended for a noncalcified 1.0 cm pulmonary nodule seen on the prior CT of 01/19/2018 to evaluate for interval growth. Lingular airspace disease also seen at that time can b e reevaluated. 2. COPD is identified radiographically however the previously fibrotic changes better appreciated on CT.
== END | disposition home or self-care (01) ==
LOC: RADXRMAIN 12:35
PROVIDERS: ATTEND Otolaryngology
DX: J44.9 Chronic obstructive pulmonary disease, unspecified (principal); J84.10 Pulmonary fibrosis, unspecified; J98.8 Other specified respiratory disorders; R91.1 Solitary pulmonary nodule
CPT/HCPCS: 71046

== ENCOUNTER → 2019-05-09 | Outpatient (CLI) | payer MEDICARE, BC ==
--- NOTE | 2019-05-10 07:24 | CT ---
EXAMINATION TYPE: CT chest w con DATE OF EXAM: 05/09/2019 COMPARISON: Chest x-ray April 23, 2019. CT chest January 19, 2018 HISTORY: RT side lung nodule. PT c/o cough. Hx HTN. Abnormal chest x-ray. CT DLP: 350.10 mGycm. Automated Exposure Control for Dose Reduction was Utilized. TECHNIQUE: CT scan of the thorax is performed following with IV Contrast, patient injected with 100 mL of Isovue 300. FINDINGS: LUNGS: [id number] peripheral pleural/parenchymal scarring in the upper lungs is redemonstrated. There are 2 adjacent calcified nodules are granulomas in the right lower lobe axial image 34 redemon strated. There is stable 9 x 6 mm subpleural nodule right lower lobe inferior to the cervix measures 37 corresponding to chest x-ray abnormality. There are additional scattered smaller nodules, for refe rence there is 9 x 5 mm lingular nodule axial image 41 stable from prior study in retrospect and lowe r density 9 x 6 mm lingular nodule axial image 35 stable in retrospect with scattered mild additional areas of parenchymal scarring bilaterally in the mid to lower lungs. No new nodules are present. No pleural effusion or pneumothorax is seen. MEDIASTINUM: There are no new greater than 1 cm hilar or mediastinal lymph nodes. No pericardial ef fusion is seen. Prominent but calcified subcarinal lymph nodes redemonstrated. Cardiomegaly is redemo nstrated. Coronary artery calcification is again seen which is noted marked for underlying coronary a rtery disease. Prominent right and left pulmonary arteries measuring 2.9 and 2.7 cm respectively. Asc ending aorta measures up to 3.7 cm diameter approximately 26 stable from prior. OTHER: Somewhat small size thyroid gland. Demineralization of osseous structures with S-shaped scolio tic curvature and moderate to severe multilevel spurring in the visualized spine. Incidental 1.8 cm d uodenal diverticulum axial image 66 series 4. IMPRESSION: Evidence of old granulomatous disease. Chronic parenchymal changes redemonstrated. Stable scattered noncalcified nodules. Consider follow-up CT in one year's time to document two-year stabil ity.
== END | disposition home or self-care (01) ==
LOC: RADCTMAIN 16:10
PROVIDERS: ATTEND Otolaryngology
DX: J98.8 Other specified respiratory disorders (principal); D71 Functional disorders of polymorphonuclear neutrophils; R91.8 Other nonspecific abnormal finding of lung field
CPT/HCPCS: 82565; 84520; 71260; 36415; Q9967

== ENCOUNTER → 2019-06-04 | Outpatient (CLI) | payer MEDICARE, BC ==
[2019-06-04 09:52] LABS: Basophils % (A) 0 %; Eosinophils # (A) 0.4 k/uL (0-0.7); Eosinophils % (A) 5 %; HCT 47.9 % (39.0-53.0); HGB 15.7 gm/dL (13.0-17.5); Lymphocytes # (A) 1.2 k/uL (1.0-4.8); Lymphocytes % (A) 12 %; MCH 31.7 pg (25.0-35.0); MCHC 32.8 g/dL (31.0-37.0); MCV 96.7 fL (80.0-100.0); Mean Platelet Volume 6.8; Monocytes # (A) 0.5 k/uL (0-1.0); Monocytes % (A) 5 %; Neutrophils # (A) 7.4 k/uL (1.3-7.7); Neutrophils % (A) 75 %; Platelet Count 206 k/uL (150-450); RBC 4.96 m/uL (4.30-5.90); RDW 13.7 % (11.5-15.5); WBC 9.9 k/uL (3.8-10.6)
[2019-06-04 16:20] LABS: African American GFR (CKD) 64.9 (60.0-200.0); Albumin 4.4 g/dL (3.80-4.90); Albumin/Globulin Ratio 2.44 (1.60-3.17); Anion Gap 6.7 mmol/L (4.00-12.00); BUN/Creat Ratio 18.33 Ratio (12.00-20.00); Calcium 9.2 mg/dL (8.7-10.3); Carbon Dioxide 28.3 mmol/L (21.6-31.8); Chol/HDL Ratio 3.02; Globulin 1.8 g/dL (1.6-3.3); LDL Cholesterol,Calculated 89.2 mg/dL (0.0-131.0); Potassium 4.9 mmol/L (3.5-5.5); Total Protein 6.2 g/dL (6.2-8.2); VLDL Calculation 11.8 mg/dL (5.00-40.00)
[2019-06-04 16:29] LABS: T4, Free (Free Thyroxine) 1.5 ng/dL (0.80-1.80)
== END | disposition home or self-care (01) ==
LOC: LABWHC1 08:13
PROVIDERS: ATTEND Family Medicine
DX: I10 Essential (primary) hypertension (principal); E78.2 Mixed hyperlipidemia; E11.9 Type 2 diabetes mellitus without complications; E03.9 Hypothyroidism, unspecified
CPT/HCPCS: 36415; 80053; 80061; 82043; 82570; 83036; 83880; 84439; 84443; 85025

== ENCOUNTER → 2020-04-08 | Outpatient (CLI) | payer MEDICARE ==
[2020-04-08 10:02] LABS: Basophils % (A) 0 %; Eosinophils # (A) 0.2 k/uL (0-0.7); Eosinophils % (A) 3 %; HGB 15.3 gm/dL (13.0-17.5); Lymphocytes % (A) 13 %; MCHC 31.8 g/dL (31.0-37.0); MCV 97.7 fL (80.0-100.0); Mean Platelet Volume 8.3; Monocytes # (A) 0.4 k/uL (0-1.0); Monocytes % (A) 5 %; Neutrophils # (A) 6.1 k/uL (1.3-7.7); Neutrophils % (A) 78 %; Platelet Count 195 k/uL (150-450); RBC 4.91 m/uL (4.30-5.90); RDW 13.5 % (11.5-15.5); WBC 7.9 k/uL (3.8-10.6)
[2020-04-08 17:12] LABS: INR 1.98 (0.90-1.11); Prothrombin Time 20.6 sec (9.9-11.9)
[2020-04-08 17:53] LABS: African American GFR (CKD) 71.6 (60.0-200.0); Albumin 4.4 g/dL (3.80-4.90); Albumin/Globulin Ratio 2.32 (1.60-3.17); Anion Gap 7.5 mmol/L (4.00-12.00); BUN/Creat Ratio 15.45 Ratio (12.00-20.00); Calcium 9.6 mg/dL (8.7-10.3); Carbon Dioxide 26.5 mmol/L (21.6-31.8); Globulin 1.9 g/dL (1.6-3.3); Magnesium 1.8 mg/dL (1.5-2.4); Non-African American GFR(CKD) 61.8 (60.0-200.0); Potassium 4.3 mmol/L (3.5-5.5); Total Bilirubin 0.9 mg/dL (0.3-1.2); Total Protein 6.3 g/dL (6.2-8.2)
[2020-04-08 18:02] LABS: T4, Free (Free Thyroxine) 1.3 ng/dL (0.80-1.80)
[2020-04-08 21:29] LABS: Hemoglobin A1C 5.8 % (4.0-6.0)
== END | disposition home or self-care (01) ==
LOC: LABWHC1 08:44
PROVIDERS: ATTEND Family Medicine
DX: J44.1 Chronic obstructive pulmonary disease with (acute) exacerbation (principal); I10 Essential (primary) hypertension; E11.9 Type 2 diabetes mellitus without complications; R04.0 Epistaxis; E03.9 Hypothyroidism, unspecified
CPT/HCPCS: 36415; 80053; 83036; 83735; 84439; 84443; 85025; 85610

== ENCOUNTER → 2020-10-13 | Outpatient (CLI) | payer MEDICARE ==
[2020-10-13 09:46] LABS: Appearance,Urine Clear (Clear); Bilirubin,Urine Negative (Negative); Blood,Urine Negative (Negative); Color,Urine Yellow; Glucose,Urine (UA) Negative (Negative); Ketones,Urine Negative (Negative); Leukocyte Esterase,Urine Negative (Negative); Nitrite,Urine Negative (Negative); Protein,Urine Negative (Negative); Specific Gravity,Urine 1.012 (1.001-1.035); Urobilinogen,Urine <2.0 mg/dL (<2.0)
[2020-10-13 15:45] LABS: Basophils # (A) 0.04 X 10*3/uL (0.00-0.10); Basophils % (A) 0.6 %; Eosinophils # (A) 0.39 X 10*3/uL (0.04-0.35); Eosinophils % (A) 5.8 %; HCT 43.1 % (39.6-50.0); HGB 14.5 g/dL (13.0-17.0); Lymphocytes # (A) 0.74 X 10*3/uL (0.90-5.00); Lymphocytes % (A) 11.1 %; MCHC 33.6 g/dL (32.0-37.0); MCV 95.1 fL (80.0-97.0); Mean Platelet Volume 11.3 fL (9.5-12.2); Monocytes # (A) 0.54 X 10*3/uL (0.20-1.00); Monocytes % (A) 8.1 %; Neutrophils # (A) 4.95 X 10*3/uL (1.80-7.70); Neutrophils % (A) 74.1 %; Platelet Count 196 X 10*3/uL (140-440); RBC 4.53 X 10*6/uL (4.40-5.60); RDW 13.4 % (11.5-14.5); WBC 6.68 X 10*3/uL (4.50-10.00)
[2020-10-13 15:53] LABS: INR 3.74 (0.90-1.11); Prothrombin Time 37.4 sec (9.9-11.9)
[2020-10-13 16:19] LABS: ALT 23 U/L (10-49); AST 28 U/L (14-35); Albumin/Globulin Ratio 2.26 (1.60-3.17); Alkaline Phosphatase 133 U/L (41-126); BUN/Creat Ratio 13.33 Ratio (12.00-20.00); Calcium 9.8 mg/dL (8.7-10.3); Carbon Dioxide 27.6 mmol/L (21.6-31.8); Chloride 104 mmol/L (96-109); Chol/HDL Ratio 2.97; Cholesterol 104 mg/dL (0-200); Globulin 1.9 g/dL (1.6-3.3); Glucose 116 mg/dL (70-110); Magnesium 1.6 mg/dL (1.5-2.4); Non-African American GFR(CKD) 55.2 (60.0-200.0); Potassium 4.1 mmol/L (3.5-5.5); Sodium 137 mmol/L (135-145); Total Bilirubin 0.8 mg/dL (0.3-1.2); Total Protein 6.2 g/dL (6.2-8.2); Triglycerides <50.0 mg/dL (0.0-149.0)
[2020-10-13 16:56] LABS: Prostate Specific Antigen 0.5 ng/mL (0.0-6.5)
[2020-10-13 20:41] LABS: Hemoglobin A1C 5.7 % (4.0-6.0)
== END ==
LOC: LABWHC1 08:39
PROVIDERS: ATTEND Family Medicine
DX: E78.2 Mixed hyperlipidemia (principal); E03.9 Hypothyroidism, unspecified; I48.20 Chronic atrial fibrillation, unspecified; I48.0 Paroxysmal atrial fibrillation; I10 Essential (primary) hypertension; E11.9 Type 2 diabetes mellitus without complications
CPT/HCPCS: 36415; 80053; 80061; 81003; 82607; 83036; 83735; 84153; 84439; 84443; 85025; 85610

== ENCOUNTER → 2021-04-13 | Outpatient (CLI) | payer MEDICARE ==
[2021-04-13 14:07] LABS: Basophils # (A) 0.03 X 10*3/uL (0.00-0.10); Basophils % (A) 0.5 %; Eosinophils % (A) 3.1 %; HCT 43.8 % (39.6-50.0); HGB 14.5 g/dL (13.0-17.0); Lymphocytes # (A) 0.84 X 10*3/uL (0.90-5.00); Lymphocytes % (A) 13.1 %; MCHC 33.1 g/dL (32.0-37.0); MCV 96.7 fL (80.0-97.0); Monocytes # (A) 0.51 X 10*3/uL (0.20-1.00); Neutrophils # (A) 4.79 X 10*3/uL (1.80-7.70); Neutrophils % (A) 74.8 %; Platelet Count 185 X 10*3/uL (140-440); RBC 4.53 X 10*6/uL (4.40-5.60); RDW 13.2 % (11.5-14.5)
[2021-04-13 14:31] LABS: INR 1.71 (0.90-1.11)
[2021-04-13 19:02] LABS: Hemoglobin A1C 5.7 % (4.0-6.0)
[2021-04-14 10:15] LABS: AST 36 U/L (14-35); Albumin/Globulin Ratio 2.05 (1.60-3.17); Alkaline Phosphatase 125 U/L (41-126); BUN/Creat Ratio 15.83 Ratio (12.00-20.00); Calcium 9.9 mg/dL (8.7-10.3); Carbon Dioxide 24.2 mmol/L (21.6-31.8); Chloride 102 mmol/L (96-109); Chol/HDL Ratio 2.49; Cholesterol 122 mg/dL (0-200); Globulin 2.2 g/dL (1.6-3.3); Glucose 108 mg/dL (70-110); Magnesium 1.9 mg/dL (1.5-2.4); Non-African American GFR(CKD) 55.2 (60.0-200.0); Potassium 4.7 mmol/L (3.5-5.5); Sodium 140 mmol/L (135-145); Total Bilirubin 0.9 mg/dL (0.2-1.2); Total Protein 6.7 g/dL (6.2-8.2); Triglycerides <50.0 mg/dL (0.0-149.0)
[2021-04-14 10:36] LABS: ALT 21 U/L (10-49)
== END | disposition home or self-care (01) ==
LOC: LABWHC1 08:16
PROVIDERS: ATTEND Family Medicine
DX: I50.9 Heart failure, unspecified (principal); I48.0 Paroxysmal atrial fibrillation; E78.2 Mixed hyperlipidemia; E11.22 Type 2 diabetes mellitus with diabetic chronic kidney disease; J44.1 Chronic obstructive pulmonary disease with (acute) exacerbation; N18.31 Chronic kidney disease, stage 3a
CPT/HCPCS: 36415; 80053; 80061; 82306; 83036; 83735; 84439; 84443; 85025; 85610

== ENCOUNTER → 2021-09-27 | Outpatient (CLI) | payer MEDICARE ==
[2021-09-27 14:51] LABS: HCT 41.5 % (39.6-50.0); HGB 13.4 g/dL (13.0-17.0); MCH 31.2 pg (27.0-32.0); MCHC 32.3 g/dL (32.0-37.0); MCV 96.7 fL (80.0-97.0); Mean Platelet Volume 11.1 fL (9.5-12.2); NRBC Per 100 WBC 0 /100 WBCS (0.0-0.0); Platelet Count 203 X 10*3/uL (140-440); RBC 4.29 X 10*6/uL (4.40-5.60); WBC 6.97 X 10*3/uL (4.50-10.00)
[2021-09-27 16:06] LABS: African American GFR (CKD) 62.1 (60.0-200.0); Albumin 4.5 g/dL (3.8-4.9); Albumin/Globulin Ratio 2.07 (1.60-3.17); Anion Gap 11.6 mmol/L (10.00-18.00); BUN/Creat Ratio 25.2 Ratio (12.00-20.00); Calcium 9.6 mg/dL (8.7-10.3); Carbon Dioxide 23.6 mmol/L (20.0-27.5); Globulin 2.2 g/dL (1.6-3.3); HDL Cholesterol 45.4 mg/dL (40.00-60.00); Magnesium 2.1 mg/dL (1.5-2.4); Non-African American GFR(CKD) 53.6 (60.0-200.0); Potassium 4.2 mmol/L (3.5-5.5); Prostate Specific Antigen 0.5 ng/mL (0.00-6.50); Total Bilirubin 0.6 mg/dL (0.30-1.20); Total Protein 6.6 g/dL (6.2-8.2); Triglycerides 48.6 mg/dL (0.00-149.00)
[2021-09-27 16:09] LABS: INR 2.68 (0.90-1.11); Prothrombin Time 28.9 sec (9.9-11.9)
[2021-09-27 16:24] LABS: Chol/HDL Ratio 2.56 Ratio; LDL Cholesterol,Direct Reflex 60.2 mg/dL (0.00-129.00)
== END | disposition home or self-care (01) ==
LOC: LABWHC1 08:08
PROVIDERS: ATTEND Family Medicine
DX: Z00.00 Encounter for general adult medical examination without abnormal findings (principal); E11.9 Type 2 diabetes mellitus without complications; E78.2 Mixed hyperlipidemia; N40.1 Benign prostatic hyperplasia with lower urinary tract symptoms; J44.9 Chronic obstructive pulmonary disease, unspecified
CPT/HCPCS: 36415; 80053; 80061; 82306; 82550; 82607; 83036; 83721; 83735; 84153; 84403; 84443; 85027; 85610

== ENCOUNTER → 2022-04-07 | Outpatient (CLI) | payer MEDICARE ==
[2022-04-07 14:43] LABS: Basophils # (A) 0.02 X 10*3/uL (0.00-0.10); Basophils % (A) 0.3 %; Eosinophils # (A) 0.16 X 10*3/uL (0.04-0.35); HCT 39.7 % (39.6-50.0); HGB 13.3 g/dL (13.0-17.0); Immature Grans, Automated 0.4 %; Lymphocytes # (A) 0.98 X 10*3/uL (0.90-5.00); Lymphocytes % (A) 12.5 %; MCH 31.1 pg (27.0-32.0); MCHC 33.5 g/dL (32.0-37.0); Mean Platelet Volume 10.8 fL (9.5-12.2); Monocytes # (A) 0.51 X 10*3/uL (0.20-1.00); Monocytes % (A) 6.5 %; NRBC Per 100 WBC 0 /100 WBCS (0.0-0.0); Neutrophils # (A) 6.11 X 10*3/uL (1.80-7.70); Neutrophils % (A) 78.3 %; Platelet Count 202 X 10*3/uL (140-440); RBC 4.27 X 10*6/uL (4.40-5.60); RDW 14.6 % (11.5-14.5); WBC 7.81 X 10*3/uL (4.50-10.00)
[2022-04-07 15:39] LABS: African American GFR (CKD) 57.7 (60.0-200.0); Albumin 4.5 g/dL (3.8-4.9); Albumin/Globulin Ratio 1.88 (1.60-3.17); Anion Gap 11.8 mmol/L (10.00-18.00); BUN/Creat Ratio 17.92 Ratio (12.00-20.00); Blood Urea Nitrogen 23.3 mg/dL (9.0-27.0); Calcium 9.8 mg/dL (8.7-10.3); Carbon Dioxide 24.2 mmol/L (20.0-27.5); Globulin 2.4 g/dL (1.6-3.3); Non-African American GFR(CKD) 49.8 (60.0-200.0); Potassium 4.8 mmol/L (3.5-5.5); T4, Free (Free Thyroxine) 1.57 ng/dL (0.800-1.800); Total Bilirubin 0.6 mg/dL (0.30-1.20); Total Protein 6.9 g/dL (6.2-8.2); Triglycerides 33.2 mg/dL (0.00-149.00)
[2022-04-07 16:12] LABS: Chol/HDL Ratio 2.33 Ratio; LDL Cholesterol,Direct Reflex 59.5 mg/dL (0.00-129.00)
== END | disposition home or self-care (01) ==
LOC: LABWHC1 09:28
PROVIDERS: ATTEND Family Medicine
DX: E11.22 Type 2 diabetes mellitus with diabetic chronic kidney disease (principal); N18.31 Chronic kidney disease, stage 3a; E78.2 Mixed hyperlipidemia; R60.9 Edema, unspecified; E03.9 Hypothyroidism, unspecified
CPT/HCPCS: 36415; 80053; 80061; 83036; 83721; 83880; 83970; 84439; 84443; 85025